=== PATIENT | male | born 1970 | race Caucasian/White ===

== ENCOUNTER 2016-09-28 11:34 | Inpatient (IN) | payer BC ==
--- NOTE | 2016-09-22 17:43 | Rehab Joint Replacement Pre-Op ---
Rehab Joint Replacement Pre-Op - Pre-Op Visit Reviewed Items Scheduled for Post Op Visit: Yes Scheduled Post Op Visit Date: 09/28/16 Pre-Op Visit Comment: Patient staying with parents after surgery until can go to his own home and climb all the stairs to bedroom. Will also have home health PT at home before starts outpatient PT. Steps into house one then none after in house. Will have to practice in bathroom with walker as a narrow fit and patient is a big aliyah. Mom has house already set-up for post-surgery as she had an ankle injury and surgery of her own. Henry Hose/Garment Measurement TKR - Knee High: Yes Exercise Reviewed: Yes Stair Climbing: Yes Cane/Walker/Crutch Training: Yes Vend Equipment - Cane or Walker and OT Kit: N/A (Patient plans to get his own walker for after surgery; suggested do it soon so that can practice at mom's house where he will be staying after surgery.) List of Venders in the Area: N/A Shower Chair Transfers: Yes Car Transfers: Yes Bed Transfers: Yes Medical History Forms Issued: No Functional Scale Forms Issued: No
[~2016-09-28 11:34] MED LIST: ACETAMINOPHEN 1000MG/100 ML PREMIX IV ONE; CELECOXIB 100 MG CAPSULE PO ONE; FAMOTIDINE 20MG TABLET PO ONE; MECLIZINE 25 MG TABLET PO ONE; METOCLOPRAMIDE 10 MG TABLET PO ONE; VANCOMYCIN HCL 1,000 MG in 0.9 % SODIUM CHLORIDE 250ML 250 ML IVPB ONE
[2016-09-28] MEDS ORDERED: MIDAZOLAM HCL 2MG/2ML VIAL IV ONE (14:00)
[2016-09-28] MEDS ORDERED: FENTANYL PF 100MCG/2ML VIAL IV ONE (14:00)
[2016-09-28] MEDS ORDERED: PROPOFOL 10 MG/ML VIAL IV ONE (14:00)
[2016-09-28] MEDS ORDERED: ONDANSETRON HCL IV 4 MG/2 ML VIAL IVP ONE (14:00)
[2016-09-28] MEDS ORDERED: KETOROLAC 30 MG/ML VIAL IVP ONE (14:00)
[2016-09-28] MEDS ORDERED: EPHEDRINE SULFATE 50 MG/ML ML IV ONE (14:00)
[2016-09-28 14:01] LABS: ABO GROUP AB; ANTIBODY SCREEN NEGATIVE (NEGATIVE); RH TYPE POSITIVE
[2016-09-28] MEDS ORDERED: MAGNESIUM HYDROXIDE 30 ML UDC PO PRN (14:27)
[2016-09-28] MEDS ORDERED: PROMETHAZINE HCL 12.5 MG in 0.9 % SODIUM CHLORIDE 100ML 50 ML IVPB PRN (14:27)
[2016-09-28] MEDS ORDERED: KETOROLAC 30 MG/ML VIAL IVP PRN ×2 (14:27)
[2016-09-28] MEDS ORDERED: ONDANSETRON HCL IV 4 MG/2 ML VIAL IVP PRN (14:27)
[2016-09-28] MEDS ORDERED: ZOLPIDEM TARTRATE 5 MG TABLET PO PRN (14:27)
[2016-09-28] MEDS ORDERED: HYDROMORPHONE HCL 2 MG/ML VIAL IM PRN (14:27)
[2016-09-28] MEDS ORDERED: NALOXONE 0.4 MG/1 ML VIAL IVP PRN (14:27)
[2016-09-28] MEDS ORDERED: HYDROCODONE/APAP 7.5/325MG TABLET PO PRN (14:27)
[2016-09-28] MEDS ORDERED: ACETAMINOPHEN/CODEINE TABLET PO PRN ×2 (14:27)
[2016-09-28] MEDS ORDERED: HYDROCODONE/APAP 5/325MG TABLET PO PRN ×2 (14:27)
[2016-09-28] MEDS ORDERED: HYDROMORPHONE HCL 1 MG/ML CPJ IM PRN (14:27)
[2016-09-28] MEDS ORDERED: METOCLOPRAMIDE HCL 10 MG/2 ML VIAL IVP PRN (14:27)
[2016-09-28] MEDS ORDERED: AL HYDROX/MAG HYDROX 30ML UD PO PRN (14:27)
[2016-09-28] MEDS ORDERED: BISACODYL 10 MG SUPP RC PRN (14:27)
[2016-09-28] MEDS ORDERED: ACETAMINOPHEN 325 MG TAB PO PRN (14:27)
[2016-09-28] MEDS ORDERED: DIPHENHYDRAMINE HCL 25 MG CAPSULE PO PRN (14:27)
[2016-09-28] MEDS ORDERED: TRAMADOL HCL 50 MG TABLET PO PRN ×2 (14:27)
[2016-09-28] MEDS ORDERED: MORPHINE SULFATE 5 MG/ML PFS IVP PRN ×4 (14:27)
[2016-09-28] MEDS ORDERED: DEXTROSE 5 % AND 0.9 % NACL 1,000 ML IV PRN (14:27)
[2016-09-28] MEDS: HYDROCODONE/APAP 7.5/325MG TABLET PO PRN ×2 (19:09→23:03)
[2016-09-28] MEDS: HUMULIN R 100 UNIT/ML VIAL SQ SCH (20:01)
[2016-09-28] MEDS: METFORMIN 500 MG TABLET PO SCH (22:03)
[2016-09-28] MEDS: DOCUSATE SODIUM 100 MG CAPSULE PO SCH (22:03)
[2016-09-28] MEDS: FERROUS SULFATE 325 MG TAB PO SCH (22:03)
[2016-09-28] MEDS: LISINOPRIL 20 MG TABLET PO SCH (22:06)
[2016-09-29] MEDS ORDERED: RINGERS SOLUTION,LACTATED 1,000 ML IV ONE ×2 (00:40→23:00)
[2016-09-29] MEDS: VANCOMYCIN HCL 1 MG in 0.9 % SODIUM CHLORIDE 250ML 250 ML IVPB SCH ×2 (00:51→16:07)
[2016-09-29] MEDS: HYDROCODONE/APAP 7.5/325MG TABLET PO PRN ×6 (03:18→23:10)
[2016-09-29 06:47] LABS: HEMATOCRIT 39.8 % (42.0-52.0); HEMOGLOBIN 13.4 gm/dl (14.0-18.0)
--- NOTE | 2016-09-29 08:02 | Rehab Evaluation ---
Patient Information - Patient Information Diagnosis: left TKA 09/28/16 Ordered Treatment: OT Evaluate and Treat Status: Initial Evaluation Surgery: Yes (left TKA ) Date of Surgery: 09/28/16 History: Detail Past Medical/Surgical Hx: PAST MEDICAL/SURGICAL HISTORY Past Surgical History left knee arthroscopy 10/2015. PMH - Respiratory Hx Respiratory Disorders Yes Hx Sleep Apnea Yes Hx of CPAP No PMH - Cardiovascular Hx Cardiovascular Disorders Yes Hx Hypertension Yes Exercise Tolerance Good Hx of Migraines Yes PMH - Neuro Hx Neurological Disorders Yes Hx Headaches Yes PMH - GI Hx Gastrointestinal Disorders No PMH - Hx Genitourinary Disorders Yes Hx Kidney Stones Yes: last was 2009 PMH - Endocrine Hx Endocrine Disorders Yes Hx Diabetes Yes: x 1.5 yrs "prediabetic" Hx of NIDDM Yes PMH - Musculoskeletal Hx Musculoskeletal Disorders Yes Hx Arthritis Yes: both knees PMH - Psych Hx Psychiatric Problems No PMH - Hematology/Oncology Hx Hematology/Oncology No Disorders Premorbid Status: Detail (Pt lives with grandmother in a 2 story house but is going to stay at his parents house after discharge. His parents live in a 1 story house with 2 small steps at entrance. They have a tub/shower combination with grab bar and tub bench. His toilet is slightly elevated, no grab bar. His parents will be assisting with home mgmt, meal prep and laundry. He has a 2 wheeled walker.) Precautions: [place], Fall - Time With Patient Total Time Spent With Patient (Min): 25 Treatment Procedures: Detail (OT eval low complexity) Subjective Information - Subjective Information Per Patient Objective Data - Pain Pain Present: No - Mental Status Patient Orientation: Oriented x3 - Visual Perception Appears within normal limits for therapeutic activities - ROM Within normal limits (Steve UE AROM WNL) - Strength/Tone Within normal limits (Steve UE MMT WNL) - Coordination Appears within normal limits for therapeutic activities - Sensation Intact - ADL's/IADL's Detail (Pt reports he is toileting Indly and was able to don shorts Indly last night. He is planning to wear slip on shoes.) Therapy Assessment - Therapy Assessment Detail (Reviewed modified dressing techniques, use of equipment, home OT options after discharge. Pt feels he will not need any additional OT and verbalizes understanding of education.) Problem List - Problem List Occupational Therapy Problem List: Detail (No problems identified at this time.) Goals - Goals Occupational Therapy Goals: No OT goals identified at this time. Prognosis - Prognosis Good Plan - Plan Occupational Therapy Plan: Discharge from OT at this time.
[2016-09-29] MEDS: HUMULIN R 100 UNIT/ML VIAL SQ SCH ×3 (08:48→19:10)
[2016-09-29] MEDS: METFORMIN 500 MG TABLET PO SCH ×2 (08:50→17:10)
[2016-09-29] MEDS: CELECOXIB 100 MG CAPSULE PO SCH (10:01)
[2016-09-29] MEDS: DOCUSATE SODIUM 100 MG CAPSULE PO SCH ×2 (10:01→21:05)
[2016-09-29] MEDS: FERROUS SULFATE 325 MG TAB PO SCH ×2 (10:02→21:05)
[2016-09-29] MEDS: RIVAROXABAN 10 MG TABLET PO SCH (10:02)
[2016-09-29] MEDS: LISINOPRIL 20 MG TABLET PO SCH ×2 (10:03→21:06)
--- NOTE | 2016-09-29 11:34 | Rehab Evaluation ---
Patient Information - Patient Information Diagnosis: left TKA 09/28/16 Ordered Treatment: PT Evaluate and Treat Status: Initial Evaluation Surgery: Yes (left TKA ) Date of Surgery: 09/28/16 History: Detail Past Medical/Surgical Hx: PAST MEDICAL/SURGICAL HISTORY Past Surgical History left knee arthroscopy 10/2015. PMH - Respiratory Hx Respiratory Disorders Yes Hx Sleep Apnea Yes Hx of CPAP No PMH - Cardiovascular Hx Cardiovascular Disorders Yes Hx Hypertension Yes Exercise Tolerance Good Hx of Migraines Yes PMH - Neuro Hx Neurological Disorders Yes Hx Headaches Yes PMH - GI Hx Gastrointestinal Disorders No PMH - Hx Genitourinary Disorders Yes Hx Kidney Stones Yes: last was 2009 PMH - Endocrine Hx Endocrine Disorders Yes Hx Diabetes Yes: x 1.5 yrs "prediabetic" Hx of NIDDM Yes PMH - Musculoskeletal Hx Musculoskeletal Disorders Yes Hx Arthritis Yes: both knees PMH - Psych Hx Psychiatric Problems No PMH - Hematology/Oncology Hx Hematology/Oncology No Disorders Premorbid Status: Detail (Pt lives with grandmother in a 2 story house but is going to stay at his parents house after discharge. His parents live in a 1 story house with 2 small steps at entrance. They have a tub/shower combination with grab bar and tub bench. His toilet is slightly elevated, no grab bar. His parents will be assisting with home mgmt, meal prep and laundry. He has a 2 wheeled walker.) Social History: Detail Precautions: [place], Fall - Time With Patient Total Time Spent With Patient (Min): 55 Treatment Procedures: Detail (Post-operative physical therapy evaluation.) Subjective Information - Subjective Information Per Patient (Pt reports pain this am not too bad 3-10 but only up to bathroom. ) Objective Data - Pain Pain Present: Yes Pain Intensity: 4 Pain Scale Used: Numeric (1 - 10) - Mental Status Patient Orientation: Oriented x3 - Visual Perception Appears within normal limits for therapeutic activities - ROM Within normal limits (Bilateral UEs ROM WNLS. RLE ROM WNL-WFLs Left hip and ankle WNL, knee N/A secondary to TKA yesterday PM. Pt has what he needs to sit and ambulate PRN.) - Strength/Tone Within normal limits (BUEs +4 to 5/5 throughout. RLE +4 to 5/5 throughout. LLE N /A functionally -3 to 4/5 throughout.) - Coordination Appears within normal limits for therapeutic activities (within limitations associated with TKA.) - Bed Mobility Needs Assist (I did min. PA or less for LLE onto and off bed.) - Transfers Needs Assist (Required only verbal cues for safety.) - Balance Balance Sitting: Good Balance Standing: Good (with 2WW.) - Sensation Intact - Gait Detail (Pt ambulated to nurses station (68-70 ft) and back with some mild c/o pain.) - Special Tests No Therapy Assessment - Therapy Assessment Detail (Pt did well with first therapy session, no c/o nausea, dizziness, and pain was mild.) Patient Education - Patient Education Teaching Topic: Equipment Use, Exercise/Activity, Precautions, Signs/Symptoms Response: Return Demonstration, Reinforcement Needed Teaching Method: Discussion, Demonstration, Handout Teaching Recipient: Patient Barriers To Learning: None Problem List - Problem List Physical Therapy Problem List: Detail (Mobility limitations secondary to LTKA on 09/28/16, including transfers,ambulation, and bed mobility (to lesser degree.) ) Occupational Therapy Problem List: Detail (No problems identified at this time.) Goals - Goals Physical Therapy Goals: 1. Ind with bed mobility 2. Ind with transfers 3. Ind with ambulation using 2 wheeled walker household distances 4. Ind with home exercise program 5. Ind with navigating 2 steps Occupational Therapy Goals: No OT goals identified at this time. Prognosis - Prognosis Good Plan - Plan Physical Therapy Plan: PT 1-2 times daily until discharge or all goals achieved. Occupational Therapy Plan: Discharge from OT at this time.
[2016-09-29] MEDS ORDERED: TRANEXAMIC ACID 1,000 MG/10 ML ML IV ONE (14:00)
[2016-09-29] MEDS ORDERED: BUPIVACAINE 0.5% W/EPI MPF 30 ML VIAL IVP ONE (14:00)
[2016-09-29] MEDS ORDERED: VANCOMYCIN HCL 1 GM VIAL IVPB ONE (14:00)
--- NOTE | 2016-09-29 15:29 | Physical Therapy Tx Note ---
Physical Therapy Tx Note - Treatment Note Tolerated: Good (Patient doing very well with gait and pain increases only after walking. Most of the time minimal pain. Able to walk in [place] 100 feet times two then up and down stairs: three steps with rail, walker and min assist. ) Total Time Spent With Patient: 30 Physical Therapy Tx Note: Detail (Patient seen in room and sitting up in chair, able to do exercises seated in chair with some discomfort at left knee. Sit to stand with CGA from chair to standard walker then ambulated 100 feet in [place], down three steps with folder walker and rail, CGA then pivoted around and walked up three steps with walker and rail, CGA only. Ambulated back to room with standard walker without issues about 100 feet. Helped patient back to bed, re-attached cryocuff and compressive stockings, placed tray table close with call light.) Physical Therapy Problem List: Detail (Mobility limitations secondary to LTKA on 09/28/16, including transfers,ambulation, and bed mobility (to lesser degree.) ) Physical Therapy Goals: 1. Ind with bed mobility 2. Ind with transfers 3. Ind with ambulation using 2 wheeled walker household distances 4. Ind with home exercise program 5. Ind with navigating 2 steps Prognosis: Good (Goals met and patient able to ambulate quite well. Should continue to practice gait this evening with nursing and will probably see patient tomorrow one more time as tolerated as patient spending the night again. ) Physical Therapy Plan: PT 1-2 times daily until discharge or all goals achieved.
[2016-09-30 06:40] LABS: HEMATOCRIT 36.6 % (42.0-52.0); HEMOGLOBIN 12.4 gm/dl (14.0-18.0)
[2016-09-30] MEDS ORDERED: KETOROLAC 30 MG/ML VIAL IVP ONE (07:48)
[2016-09-30] MEDS: METFORMIN 500 MG TABLET PO SCH (08:00)
[2016-09-30] MEDS: HUMULIN R 100 UNIT/ML VIAL SQ SCH ×2 (08:01→11:30)
--- NOTE | 2016-09-30 10:14 | Physical Therapy Tx Note ---
Physical Therapy Tx Note - Treatment Note Tolerated: Good Total Time Spent With Patient: 35 Physical Therapy Tx Note: Detail (Pt was supine in bed upon arrival. Pt was eager to get out of bed but not "looking forward to moving the knee". Pt completed ex's in bed of quad sets, glute sets, heel slides with assist from [employer] , all x 10 each. Pt required min assist with transfer from supine to sit at edge of bed. Pt completed ex's of marches, seated heel slides, hip adduction with pillow, all x 10 each. Pt was able to complete sit to stand without assist but required verbal cueing with all transfers today. Pt ambulated with front wheeled walker x 250 ft. with contact guard assist and verbal encouragement to walk longer distanve than just the nurses station. Pt requires verbal cueing while walking to weight bear evenly, and to bend knee to clear foot instead of hip hiking. Pt returned to room and in bed to complete self assisted heel slides with a sheet for increased ROM. Pt then transferred to sitting in chair at bedside. Pt was given phone, nurses call light, and water. Nursing was notified of patient wanting to change his clothes. Pt to continue with ex's 3-5 x's a day and is to be discharged this afternoon where he will go to his parents house to stay with them and is to have home therapy.) Physical Therapy Problem List: Detail (Mobility limitations secondary to LTKA on 09/28/16, including transfers,ambulation, and bed mobility (to lesser degree.) ) Physical Therapy Goals: 1. Ind with bed mobility 2. Ind with transfers 3. Ind with ambulation using 2 wheeled walker household distances 4. Ind with home exercise program 5. Ind with navigating 2 steps Prognosis: Good Physical Therapy Plan: PT 1-2 times daily until discharge or all goals achieved.
[2016-09-30] MEDS: DOCUSATE SODIUM 100 MG CAPSULE PO SCH (10:47)
[2016-09-30] MEDS: FERROUS SULFATE 325 MG TAB PO SCH (10:47)
[2016-09-30] MEDS: LISINOPRIL 20 MG TABLET PO SCH (10:48)
[2016-09-30] MEDS: CELECOXIB 100 MG CAPSULE PO SCH (10:48)
[2016-09-30] MEDS: RIVAROXABAN 10 MG TABLET PO SCH (10:48)
--- NOTE | 2016-09-30 11:50 | Operative Note ---
DATE OF SURGERY: 09/28/2016 PREOPERATIVE DIAGNOSIS: End-stage left knee arthrosis. POSTOPERATIVE DIAGNOSIS: End-stage left knee arthrosis. OPERATION: LEFT TOTAL KNEE ARTHROPLASTY. Surgeon: Asaf Barnard MD Anesthesia: Spinal. COMPLICATIONS: None. Estimated Blood Loss: Minimal. Tourniquet Time: 94 minutes. OPERATIVE FINDINGS: [id number] knee arthrosis, severe medial compartment. COMPONENTS PLACED: Two gram vancomycin, [employer] II Oxinium total knee arthroplasty, system size 8 femoral component, size 7 tibial base plate, a 12 mm thick tibial poly insert, and a 35 mm cement patellar component. Indication: This is a 45-year-old male with severe knee arthrosis and congruity of articular surface of medial femoral condyle. He has failed extensive nonoperative and operative treatments including anti-inflammatories, injection, arthroscopic debridement. 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 A very large male weighing over 400 pounds, and he wished to proceed with knee replacement at this point. I explained the risks and benefits thoroughly in detail for the procedures including but not limited to infection, nerve injury, vessel injury, persistent pain, stiffness, numbness, tingling in his knee, periprosthetic fracture, need for resection, arthroplasty, components could in fact loosen, nerve injury, vessel injury, blood clot and need for further procedures, need for anticoagulation to prevent blood clots, risks associated with these medications and all of his questions were answered. Course was outlined and he agreed to proceed. PROCEDURE: The patient was brought in the OR, placed in the supine position by the Department of Surgery. Spinal anesthesia induced and his left lower extremity and knee were prepped and draped in the sterile fashion. The left knee was prepped using Chloraprep and draped. An intraoperative timeout was performed. Next, the leg was exsanguinated with Esmarch, the knee was flexed and tourniquet inflated to 250 mmHg pressure. Next, an anterior incision was marked over the knee. This was infiltrated with 0.5% Marcaine with epi. Skin and subcutaneous tissue dissected down. Incised the capsule from the medial patella to tibial tubercle. Incised the vastus medialis in line with its fibers in a mid vastus approach. Partially everted the patella. Resected the peripatellar fat pad. He had severe [id number] medial compartment arthrosis, grade 4 chondromalacia and multiple loose bodies came out of the knee. We then drilled an intracondylar hole and inserted the intramedullary guide jun with 6 degree cutting block in line with the distal femoral condyles and pinned it in place in the +2 mm position, cup to distal femoral condyle. Next, we placed a sizing jig in the distal femoral condyle. Sized to be right on size 8. Through the previously placed pin holes, we placed the 5-in-1 cutting jig. We dialed in the anterior cut so it would come out flush without notching. We cut the anterior cut, it was a good flush cut. Then we pinned it in place, cut the remainder with chamfer cuts in the usual fashion. Next, we placed a size 8 trial femoral component, centered it, pinned it. Removed osteophytes off the periphery and inserted the femoral resection collar and inserted the reamer and the box osteotome. Next, attention was turned to the tibia. Placed mechanical retractors and bent Dylon mediolateral, exposing the proximal tibia. We seated the spikes of the external alignment jig in the tubercular groove 2 fingerbreadths distally, inserted the spikes in the tibial cortex and referenced for a 9 mm cut off the high lateral plateau. We pinned the cutting jig provisionally in place with 2 anterior and posterior pins. We then rechecked the alignment the cuts using a drop jun, centered on the tibial anatomic access and verified alignment of the tibial cut and cross-pinned the completed fixation, then cut the tibia. Next, we removed osteophytes off the posterior femoral condyles, checked flexion and extension gaps which basically had symmetric flexion and extension gaps with a 12 mm thick poly insert. This allowed for 2-3 mm of varus/valgus laxity in flexion and extension, and overall cuts and extension was in anatomic valgus orientation with alignment jun centered on the hip joint and ankle joint. Next, we removed osteophytes from the posterior femoral condyle, checked flexion and extension gaps. He had symmetric flexion and extension gaps with 12 mm thick poly insert. Overall alignment, cuts and extension was examined and intact with valgus orientation. He had 2-3 mm of varus/valgus laxity in flexion and extension with a 12 mm poly insert. Next, we took the knee in flexion, sized the tibial baseplate to a size 7. Replaced all trial components and set the rotation of the tibial baseplate again in extension using the alignment rods centered on the hip joint and ankle joint, marked with electrocautery. Marked the anterior tibial cortex off the laser josé of the tibia baseplate. Attention now turned to the patella. We measured the patella at 26 mm. Set the cutting jig at 17 mm to allow for a 9 mm thick insert. We cut the patella, chamfered off the lateral patellar facet. Sized to be 35. Medialized as much as possible then drilled the 3 peg holes. We placed a size 35 trial component. We did a trial range of motion. The patella tracked nicely hands free with full extension and flexion to 130 to 140 degrees. Again, symmetric flexion and extension gaps. We mixed cement. Next, we took the knee in flexion, copiously irrigated bony surfaces with pulse lavage antibiotic solution. Set the tibial baseplate to line up with the previously placed electrocautery josé, pinned it in place and reamed out and Keel punched the Keel hole. Next, we changed gloves, gown and clean sheet, and packed down bone graft in the femoral canal hole. Pre-cut bolsters packed on the tibial component and then the femoral component. We removed excess cement. Placed the trial tibial poly liner and then held the knee in extension until the cement hardened and then clamped down the patella component. Once the cement hardened, then distracted the knee with bone hook and sponge. We irrigated the knee copiously. Pulse lavaged with antibiotic solution. Removed any excess cement and debris from around the edges of the components meticulously. We irrigated copiously. We then meticulously injected with several sticks, 2 cm deep or 2 cm apart of the our mixture to tranexamic acid, 2 g, 20 mL of 0.5% Marcaine with epi, and Exparel around the entire periphery, posterior capsular recesses, medial and lateral periosteum of the knee and quadriceps and incision. We then distracted the knee bone hook and sponge and secured the real poly insert, verified it was interlocked medial laterally. Final range of motion and stability were the same. Next, we then closed the knee in flexion using #2 Quill suture and 2-0 Vicryl to close the skin and tory. Sterile dressing applied and Saran wrap. The patient tolerated the procedures well. No intraoperative complication. All sponge, needle and instrument counts correct. Recovery stable. Neuro is intact. Can be discharged to the floor for pain control and IV antibiotics, then total knee rehab, likely discharge tomorrow home. DOUG
[2016-09-30] MEDS: HYDROCODONE/APAP 7.5/325MG TABLET PO PRN (12:42)
--- NOTE | 2016-09-30 16:10 | Physical Therapy Tx Note ---
Physical Therapy Tx Note - Treatment Note Tolerated: Good Total Time Spent With Patient: 15 Physical Therapy Tx Note: Detail (The patient ambulated independently with wheeled walker 100 feet x l WBAT on the L LE. The patient's HEP was reviewed including seated heel slides, quad sets, heel sldes supine. The patient achieved 75 degrees of flexion.) Physical Therapy Problem List: Detail (Mobility limitations secondary to LTKA on 09/28/16, including transfers,ambulation, and bed mobility (to lesser degree.) ) Physical Therapy Goals: 1. Ind with bed mobility 2. Ind with transfers 3. Ind with ambulation using 2 wheeled walker household distances 4. Ind with home exercise program 5. Ind with navigating 2 steps Physical Therapy Plan: PT goals were met, the patient discharged to home and is to receive home therapy.
== END 2016-09-30 16:18 | disposition home health service (06) | DRG 470 ==
LOC: MEDSURG 11:34
PROVIDERS: ADMIT Orthopaedic Surgery; ATTEND Orthopaedic Surgery
PROC: 0SRD0J9 Replacement of Left Knee Joint with Synthetic Substitute, Cemented, Open Approach (ICD-10-PCS; principal; 2016-09-28 14:00)
DX: M17.12 Unilateral primary osteoarthritis, left knee (principal); I10 Essential (primary) hypertension; E11.9 Type 2 diabetes mellitus without complications; Z79.84 Long term (current) use of oral hypoglycemic drugs
CPT/HCPCS: 36416; 82948; 85014; 85018; 86850; 86900; 86901; 94761; 97110; 97116; 97165; J1885; J2405; J7050; J7120